=== PATIENT | female | born 1985 | race Caucasian/White ===

== ENCOUNTER 2024-08-23 17:31 | Emergency (ER) | payer OTHER ==
[~2024-08-23] VITALS: Ht 154.9 cm; Wt 98.7 kg
[2024-08-23] MEDS ORDERED: FLON1SPR NARES (17:42)
[2024-08-23] MEDS ORDERED: ONDA-282 PO (17:42)
[2024-08-23 20:27] VITALS: BP 139/81; TEMP 97.8; O2SAT 99
== END 2024-08-23 20:38 | disposition home or self-care (01) ==
LOC: M ED 17:31
DX: T80.1XXA Vascular complications following infusion, transfusion and therapeutic injection, initial encounter (principal); C81.90 Hodgkin lymphoma, unspecified, unspecified site; Z79.83 Long term (current) use of bisphosphonates; Z79.899 Other long term (current) drug therapy